=== PATIENT | male | born 1965 | race Caucasian/White ===

== ENCOUNTER → 2017-02-13 | Outpatient (CLI) | payer OTHER ==
[~2017-02-13] MED LIST: FLEXERIL PO; FLOMAX0.4 M1 PO; LORTAB 5-325 M1 EACH PO; VOLTAREN DR PO; ZOFRAN PO; [UNRECOGNIZED DRUG - OTHER]
--- NOTE | ~2017-02-13 | MR17 ---
[facility] A Service of [facility] & [facility] RADIOLOGY TEXT RESULTS PATIENT: BRYANT STEVENS LOCATION: [facility] : 63 UNIT #: [id number] AGE: [address]: Annie Carlson APRN SEX: M ORDER DR: [id number] [facility] [address] [place], [place] [address] [id number] O MR#: [id number] Acc #: [id number] NAME: BRYANT STEVENS. : 1965 SEX: M STUDY DATE/TIME: 02/13/2017 9:21 UNIT: [facility] ROOM: STUDY DESCRIPTION: MR Brain WWo Contrast Attending Physician: Annie Carlson A.P.R.N. Referring Physician: Annie Carlson A.P.R.N. Ordering Physician: Annie Carlson A.P.R.N. Primary Care Physician: Sandoval Li M.D. MRI CENTER REPORT This report is preliminary unless electronic signature is present. MRI of the brain with and without. HISTORY Pain right frontal head and into right eye for 2-3 months. No history of cancer. Sometimes the pain quality is burning, other times is stabbing. Possible shingles per patient. No known trauma. COMMENT MRI of the brain was performed prior to and following intravenous administration of 20 mL of MultiHance. There is a head CT for comparison from 2004. There is no evidence for a recent ischemic insult on the diffusion series. There is no Chiari-I malformation. No extraaxial fluid collection. 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 Suggest correlation with an MR angiogram since this is associated with increased risk of intracranial aneurysm. The ventricles are normal in size and configuration. Minor periventricular white matter signal abnormality is nonspecific probably due to small vessel disease and within the range of expected for age group. Mastoid air cells are clear. There is partial opacification of the ethmoid air cells and mild mucosal disease in the maxillary sinuses. No definite sinus air-fluid level. No MRI evidence for intracranial hemorrhage. No intracranial mass effect. Following contrast administration, there is no pathologic intracranial enhancement. No intracranial mass lesion is suspected. IMPRESSION 1. 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 Recommend correlation with an MR angiogram, [place] of [place] vasculature since there is an increased risk of intracranial aneurysm formation with this anatomic variation. 2. This routine MRI of the brain with and without contrast shows mild STS. [facility] A Service of [facility] RADIOLOGY TEXT RESULTS PATIENT: BRYANT STEVENS LOCATION: [facility] : 63 UNIT #: [id number] AGE: [address]: Annie Carlson APRN SEX: M ORDER DR: periventricular white matter disease nonspecific likely due to small vessel disease and likely within the range of normal for age group. I would recommend that given complaints, the patient also undergo MRI of the orbits with and without contrast so that high-resolution imaging of the orbits and cavernous sinus region can be obtained. 3. There is some paranasal sinus disease with partial opacification of the ethmoid air cells, but no definite air-fluid levels appreciated. Dictated by... Ele Wallace M.D. THIS IS AN ELECTRONICALLY VERIFIED REPORT Ele Wallace M.D. at 02/14/2017 5:41 PM MAXIMILIANO/michelle TD: 02/14/2017 15:40 JOB #: [id number] MRI CENTER REPORT Page 1 of 1 COPY
== END | disposition home or self-care (01) ==
LOC: CMRI 01-30 18:00
DX: G50.1 Atypical facial pain (principal); R51 Headache; R90.82 White matter disease, unspecified
CPT/HCPCS: 70553; A9577

== ENCOUNTER → 2017-02-22 | Outpatient (CLI) | payer OTHER ==
--- NOTE | ~2017-02-22 | MR148 ---
[facility] A Service of [facility] & [facility] RADIOLOGY TEXT RESULTS PATIENT: BRYANT STEVENS [facility] 63 UNIT #: [id number] AGE: [address]: Annie Carlson APRN SEX: M ORDER DR: [id number] [facility] [address] [place], [place] [address] [id number] O MR#: [id number] Acc #: [id number] NAME: BRYANT STEVENS. : 1965 SEX: M STUDY DATE/TIME: 02/22/2017 9:49 UNIT: [facility] ROOM: STUDY DESCRIPTION: MR Orbit Face and or Neck WWo Attending Physician: Annie Carlson A.P.R.N. Referring Physician: Annie Carlson A.P.R.N. Ordering Physician: Annie Carlson A.P.R.N. Primary Care Physician: Sandoval Li M.D. MRI CENTER REPORT This report is preliminary unless electronic signature is present. EXAM MRI of the orbits with and without contrast dated 02/22/17. COMPARISON MRA head dated 02/22/17, MRI brain dated 02/13/17. HISTORY Follow up from MRI study dated 02/13/17. Patient has right frontal headache that extends into the right eye for the last 3 months. FINDINGS Multisequence multiplanar imaging of the orbits were obtained with and without contrast. Globes of bilateral eyes, lens, retrobulbar fat, extraocular muscles, bilateral superior ophthalmic veins do not demonstrate any significant abnormality. Lacrimal glands are intact. The right optic nerve root within its sheath appears to be slightly thinner when compared to the left. The transverse dimension of the nerve with the sheath measures 3.5 mm in the right and 4.5 mm in the left at a similar distance from the optic disc. There appears to be slightly prominent CSF tracking on either side of the left optic nerve when compared to the right. Mild right optic nerve atrophy cannot be excluded also. These are best seen in the axial T1, axial T2 CISS and coronal T2 sequences. No obvious abnormal enhancement is associated with either of the optic nerves. Minimal thinning of the right side of the optic chiasm in series 6, image 6 cannot be excluded. It could be due to volume averaging or true minimal decrease in size. The visualized optic tracts, however, are within normal limits. IMPRESSION 1. There is normal expected CSF tracking noted along the surface of the left optic nerve within the left optic sheath, but it is not as clearly seen on the right side. The overall transverse thickness of the optic nerve with the sheath is less on the right (3.5 mm) when STS. [facility] A Service of [facility] RADIOLOGY TEXT RESULTS PATIENT: BRYANT STEVENS LOCATION: [facility] : 63 UNIT #: [id number] AGE: [address]: Annie Carlson APRN SEX: M ORDER DR: compared to the left (4.5 mm). Mild associated right optic nerve atrophy cannot be excluded. Correlate clinically. 2. No abnormal enhancement of the optic nerves or associated masses are seen. 3. The right side of the optic chiasm demonstrates minimal thinness when compared to the left side. It could be due to volume averaging of that 1 slice or due to mild atrophy of the right optic nerve extending to the chiasm. The optic tracts, however appear, to be symmetrical bilaterally in the visualized portions immediately past the chiasm. Dictated by... Jessica Sharpe M.D. THIS IS AN ELECTRONICALLY VERIFIED REPORT Jessica Sharpe M.D. at 02/23/2017 5:29 PM CPR/pc TD: 02/23/2017 12:14 JOB #: [id number] MRI CENTER REPORT Page 1 of 1 COPY
--- NOTE | ~2017-02-22 | MR122 ---
[facility] A Service of [facility] & [facility] RADIOLOGY TEXT RESULTS PATIENT: BRYANT STEVENS LOCATION: [facility] : 63 UNIT #: [id number] AGE: [address]: Annie Carlson APRN SEX: M ORDER DR: [id number] [facility] [address] [place], [place] [address] [id number] O MR#: [id number] Acc #: [id number] NAME: BRYANT STEVENS. : 1965 SEX: M STUDY DATE/TIME: 02/22/2017 9:37 UNIT: [facility] ROOM: STUDY DESCRIPTION: MR MRA Head Wo Contrast Attending Physician: Annie Carlson A.P.R.N. Referring Physician: Annie Carlson A.P.R.N. Ordering Physician: Annie Carslon A.P.R.N. Primary Care Physician: Sandoval Li M.D. MRI CENTER REPORT This report is preliminary unless electronic signature is present. EXAM MR angiogram of the head without contrast dated 02/22/2017. COMPARISON MRI of the orbits dated 02/22/2017 and MRI brain dated 02/13/2017. HISTORY Follow up from MRI study dated 02/13/2017. History of right frontal headache that goes into the right eye for 3 months. Sometimes it is burning and sometimes it has a stabbing pain. The study was recommended by the radiologist who read the prior MRI brain from 02/13/2017 for azygos WENDY. FINDINGS Source and 3-D reconstruction MIP images of the [place] of [place] was obtained without contrast. Bilateral intracranial internal carotid arteries, anterior cerebral arteries, and middle cerebral arteries are within normal limits. Azygos WENDY is not seen. There are 2 A1 and A2 segments noted on the current study. Tiny ACom cannot be excluded. Bilateral middle cerebral arteries are within normal limits. Left vertebral artery is dominant. The right vertebral artery is of smaller caliber than the left. The basilar artery is of smaller caliber uniformly and measures about 2 mm in transverse dimension. Bilateral prominent posterior communicating arteries are seen which feed P2 and distal portions of bilateral posterior cerebral arteries. Bilateral P1 segments are not well seen and there is probably persistent appearance of bilateral [employer]. No obvious aneurysm or AVM is seen. IMPRESSION 1. Normal-appearing bilateral anterior communicating arteries are noted. No azygos variant is seen. Tiny ACom cannot be excluded. No aneurysm is associated with it. 2. Prominent bilateral PComs are present which feed P2 and distal STS. [facility] A Service of [facility] RADIOLOGY TEXT RESULTS PATIENT: BRYANT STEVENS LOCATION: [facility] : 63 UNIT #: [id number] AGE: [address]: Annie Carlson APRN SEX: M ORDER DR: portions of bilateral posterior cerebral arteries giving rise to the persistent appearance. 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 Dictated by... Jessica Sharpe M.D. THIS IS AN ELECTRONICALLY VERIFIED REPORT Jessica Sharpe M.D. at 02/23/2017 5:29 PM CPR/tmw TD: 02/23/2017 12:02 JOB #: [id number] MRI CENTER REPORT Page 1 of 1 COPY
== END | disposition home or self-care (01) ==
LOC: CMRI 07:51
DX: J33.8 Other polyp of sinus (principal); I72.9 Aneurysm of unspecified site
CPT/HCPCS: 70543; 70544; A9577